=== PATIENT | male | born 2000 | race Caucasian/White ===

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

== ENCOUNTER → 2020-09-07 | Outpatient (CLI) | payer BC, OTHER | LOC: COL.RAD 12:53 | DX: S43.432A Superior glenoid labrum lesion of left shoulder, initial encounter (principal); Z87.828 Personal history of other (healed) physical injury and trauma | CPT/HCPCS: A9585; Q9967 ==